=== PATIENT | female | born 1955 | race Caucasian/White ===

== ENCOUNTER 2020-01-07 15:37 | Emergency (ER) | payer MEDICARE, SELFPAY ==
[2020-01-07 15:42] VITALS: BP 111/62; PULSE 90; RESP 18; TEMP 36.7; O2SAT 99
[2020-01-07] MEDS: DEXTROSE 50% 25 GM/50 ML SYRINGE (15:48)
[2020-01-07 16:17] LABS: Basophils Absolute Auto 0.1 K/mm3 (0.0-0.1); Basophils Percent Auto 1.4 % (0.2-1.2); Eosinophils Percent Auto 0.7 % (0-4.4); Hematocrit 45.7 % (37.0-47.0); Hemoglobin 14.8 g/dL (12.0-15.0); Immature Granulocyte Absolute 0.03 K/mm3 (0.00-0.031); Immature Granulocyte Percent A 0.5 % (0-0.5); Lymphocytes Absolute Auto 0.69 K/mm3 (0.9-3.2); Lymphocytes Percent Auto 12.3 % (18.3-44.2); Mean Corpuscular HGB Conc 32.4 g/dl (32-36); Mean Corpuscular Hemoglobin 32.5 pg (26-34); Mean Corpuscular Volume 100.4 fl (80-100); Mean Platelet Volume 10.4 fl (7.4-10.4); Monocytes Absolute Auto 0.6 K/mm3 (0.1-0.6); Monocytes Percent Auto 10.9 % (2.6-8.5); Neutrophils Absolute Auto 4.2 K/mm3 (1.3-6.7); Neutrophils Percent Auto 74.2 % (45.5-73.1); Nucleated Red Blood Cells Perc 0.5 % (0.0-0.2); Platelet Count Result 196 k/mm3 (150-375); Red Blood Count 4.55 M/mm3 (4.2-5.4); Red Cell Distribution Width 17.9 % (11.5-14.5); White Blood Count 5.6 K/mm3 (4.5-10.0)
[2020-01-07 16:38] LABS: Anion Gap 20 mmol/L (8-16); Blood Urea Nitrogen 36 mg/dL (7-17); Calcium 9.4 mg/dL (8.4-10.2); Carbon Dioxide 21 mmol/L (22-30); Chloride 88 mmol/L (98-107); Estimated CRCL calculation 8 ml/min; Estimated Glomerular Filt Rate 7; Glucose 270 mg/dL (65-105); Potassium 4.3 mmol/L (3.4-5.0); Sodium 129 mmol/L (137-145)
--- NOTE | 2020-01-07 16:54 | ED.GENADULT ---
HPI - General Adult General Chief complaint: Unspecified Stated complaint: weakness Time Seen by Provider: 01/07/20 16:16 Source: patient Mode of arrival: EMS Limitations: no limitations History of Present Illness HPI narrative: 64 years old white female, brought to the emergency room because of blacking out with blood glucose of 40. Patient usually developed hypoglycemia after dialysis, she ran out of the hard candy which she usually she keep in her purse all the time when she go to dialysis. Patient also did not eat her breakfast before dialysis. Currently patient feeling okay denying any symptoms. And would like to go home. Related Data Allergies Allergy/AdvReac Type Severity Reaction Status Date / Time levofloxacin Allergy Intermediate rash Verified 04/01/18 15:18 Sulfa (Sulfonamide Allergy Unknown rash Verified 04/01/18 15:18 Antibiotics) oxycodone AdvReac Intermediate nausea and Verified 04/01/18 15:18 sensitivity to hearing erythromycin base AdvReac Mild nausea and Verified 04/01/18 15:18 vomiting; diarrhea OXYCODONE HCL AdvReac Intermediate nausea and Uncoded 04/01/18 15:18 sensitivity to hearing Review of Systems Review of Systems: Narrative: CONSTITUTIONAL: Denies fever, chills, or sweats. EYES: Denies visual changes, redness, or discharge. ENT: Denies rhinorrhea, congestion, sore throat, or otalgia. CARDIOVASCULAR: Denies chest pain, palpitations, or edema. RESPIRATORY: Denies cough or dyspnea. GASTROINTESTINAL: Denies abdominal pain, nausea, vomiting, or diarrhea. GENITOURINARY: Denies dysuria or hematuria. SKIN: Denies rash or itching. MUSCULOSKELETAL: Denies back pain, joint pain, or myalgia. NEUROLOGIC: Denies headache, numbness, or weakness. PSYCHIATRIC: Denies anxiety or depression. PMFSH Past Medical History Medical History (Updated 01/07/20 @ 16:59 by Lola Deleon MD) Chronic renal failure Hypoglycemia Social History Social History (Updated 01/07/20 @ 16:56 by Lola Deleon MD) Second hand tobacco smoke exposure: No Alcohol intake: former Substance use: never Exam Narrative: Exam Narrative: General appearance: Well-developed, well-nourished Skin: Normal color Head: Normocephalic, nontraumatic Eyes: Clear conjunctiva ENT: Oropharynx normal, ears normal, nose normal Neck: Supple, nontender Chest and respiratory: Airway patent, no respiratory distress, no accessory muscle use Heart: Regular rate/rhythm Abdomen: Soft, nontender, no organomegaly, quiet bowel sounds Vascular: Normal peripheral pulses, normal capillary refill. Musculoskeletal: Normal range of motion, nontender back Neurologic: Alert and oriented ?3, CEO & BOARD DIRECTOR is normal as tested, no gross motor deficit Course Course Emergency Course: Improving Vital Signs Vital signs: Vital Signs Temperature 36.7 C 01/07/20 15:42 Pulse Rate 90 01/07/20 15:42 Respiratory Rate 18 01/07/20 15:42 Blood Pressure 111/62 01/07/20 15:42 Pulse Oximetry 99 01/07/20 15:42 Temperature 36.7 C 01/07/20 15:42 Pulse Rate 90 01/07/20 15:42 Respiratory Rate 18 01/07/20 15:42 Blood Pressure 111/62 01/07/20 15:42 Pulse Oximetry 99 01/07/20 15:42 Medical Decision Making MDM Narrative Medical decision making narrative: Patient had hypoglycemia because he did not eat her breakfast, and did not have her hard candy before going to dialysis today. After a regular meal patient feeling okay and ready to go. Vital Signs Vital Signs: Vital Signs Temperature 36.7 C 01/07/20 15:42 Pulse Rate 90 01/07/20 15:42 Respiratory Rate 18 01/07/20 15:42 Blood Pressure 111/62 01/07/20 15:42 Pulse Oximetr
[2020-01-07 17:30] VITALS: BP 147/77; PULSE 88; RESP 17; O2SAT 96
[2020-01-07 19:04] LABS: Glucose Point of Care 194 (65-105)
== END 2020-01-07 17:30 | disposition home or self-care (01) ==
PROVIDERS: Emergency Provider Emergency Medicine; PCP Internal Medicine Nephrology
DX: E16.2 Hypoglycemia, unspecified (principal); N18.6 End stage renal disease; Z99.2 Dependence on renal dialysis
CPT/HCPCS: 36415; 80048; 85025; 96374; 99284

== ENCOUNTER 2020-01-13 20:34 | Inpatient (IN) | payer MEDICARE, SELFPAY ==
[2020-01-13] VITALS (11 sets, daily range): BP systolic 124–176; BP diastolic 33–131; PULSE 25–88; RESP 19–32; TEMP 34.9–35.8; O2SAT 76–87
--- NOTE | ~2020-01-13 | XR_ITS ---
EXAMINATION: XR chest 1V portable DATE: 01/13/2020 21:56 INDICATION: Altered mental status. Bradycardia. TECHNIQUE: A single frontal view of the chest was obtained. COMPARISON: Chest 2 views 01/05/2018, chest CT 08/22/2016 FINDINGS: There is no pneumonia, pleural effusion, or pneumothorax. Cardiomegaly is noted. There are surgical clips in the neck. IMPRESSION: 1. Cardiomegaly. Reviewed, dictated and finalized at location A. IMPRESSION: 1. Cardiomegaly.
--- NOTE | 2020-01-13 20:32 | ED.AMS ---
HPI - Altered Mental Status General Chief Complaint: Unspecified Stated Complaint: altered loc Source: EMS Mode of arrival: EMS Limitations: no limitations History of Present Illness HPI narrative: Patient is a 64-year-old female with a history of end-stage renal disease, dialysis dependent, Diabetes, hx of recent hypoglycemia for which she was seen in the ER, who presents for evaluation of altered mental status. Patient apparently was taking a nap this evening, when her cousin with whom she lives with checked on her and found her confused and not easy to wake up. EMS was called, she was found to be hypothermic, bradycardic, minimally responsive. Glucose reading was error message on glucometer for EMS. EMS attempted IV access, however IV not able to be used at time of arrival to ER. Apparently, EMS reports they tried to give the pt D10, but no glucagon was given. Patient was transported to our facility altered, but arousable, hypothermic and bradycardic. Additional history cannot be obtained. Related Data Home Medications Medication Instructions Recorded Confirmed Unable to Obtain Home Medications 01/14/20 01/14/20 Allergies Allergy/AdvReac Type Severity Reaction Status Date / Time levofloxacin Allergy Intermediate rash Verified 04/01/18 15:18 Sulfa (Sulfonamide Allergy Unknown rash Verified 04/01/18 15:18 Antibiotics) oxycodone AdvReac Intermediate nausea and Verified 04/01/18 15:18 sensitivity to hearing erythromycin base AdvReac Mild nausea and Verified 04/01/18 15:18 vomiting; diarrhea OXYCODONE HCL AdvReac Intermediate nausea and Uncoded 04/01/18 15:18 sensitivity to hearing Review of Systems Review of Systems: ROS unobtainable: Yes unobtainable due to mental status [facility] Past Medical History Medical History (Updated 01/14/20 @ 00:55 by Kiersten Aviles DO) Anemia of chronic disease Bilateral carotid artery stenosis moderate on imaging August 2015 Diabetes mellitus with neuropathy End-stage renal disease on hemodialysis 2007 dialysis Friday managed by Dr. Cummings Heart murmur History of biliary stent insertion Hyperparathyroidism Hypertension Hypoglycemia Irritable bowel syndrome Menieres disease Polycystic kidney disease Restless leg syndrome Surgical History Surgical History (Updated 01/14/20 @ 00:55 by Kiersten Aviles DO) AV (arteriovenous fistula) AV fistula graft that was clotted and subsequently converted to an AV fistula in the left arm History of bilateral cataract extraction History of parathyroidectomy Hx of cholecystectomy 2014 Hx of tonsillectomy Family History Family History Mother Polycystic kidney disease Father Leukemia Diabetes mellitus Acute myocardial infarction Social History Social History (Updated 01/14/20 @ 01:05 by Kiersten Aviles DO) Social History: She lived with her twin cousins. One of the twins 6 weeks ago at this facility. Code status: DNR /DNI per patient request. The patient specifically is asking for comfort measures only and is refusing any aggressive treatment. The ICU charge nurse, the ICU bedside nurse, and the dialysis nurse were all in the room and witnessed the discussion with the patient. Smoking status: Never smoker Second hand tobacco smoke exposure: No Alcohol intake: former Substance use: never Occupation/Education: retired Exam Narrative: Exam Narrative: GENERAL: Arousable, able to converse, chronically ill-appearing HEAD: Normocephalic, atraumatic. EYES: 2+ PERRLA ENT: Nares clear, no rhinorrhea or epistaxis. Mucous membranes dry NECK: Supple. CHEST: No respiratory distress, no crackles or wheezing HEART: Bradycardic rate ABDOMEN:Non distended, non tender, wounds to pannus, bilateral inguinal folds EXTREMITIES: Patient does have some spontaneous range of motion, periph
--- NOTE | 2020-01-13 20:49 | ECG_ITS ---
Measurements Intervals [place] Rate: 90 P: 207 [place]: 292 QRS: 110 QRSD: 130 T: -13 QT: 410 QTc: 503 Interpretive Statements SINUS OR ECTOPIC ATRIAL RHYTHM WITH FIRST DEGREE AV BLOCK RIGHT AXIS DEVIATION RIGHT BUNDLE BRANCH BLOCK LOW VOLTAGE- PRECORDIAL LEADS ANTEROSEPTAL INFARCT, AGE INDETERMINATE BORDERLINE ST-T WAVE ABNORMALITY- INFERIOR LEADS BASELINE ARTIFACT- I, III, AVR, AVL, AVF, V1, V3 ABNORMAL ECG Electronically Signed On 01-14-2020 7:01:49 CDT by Onesimo Bansal D.O.
[2020-01-13 21:07] LABS: Alveolar/Arterial O2 Gradient 612.6 mmHg; Carboxyhemoglobin 0.9 % THb (0-2.0); HCO3 ABG 13.8 mEq/l (22.0-26.0); Methemoglobin ABG 0.5 %THb (0-1.5); Oxygen Content ABG 17.6 %vol (16.0-22.0); Oxyhemoglobin 79.9 % THb (90.0-100.0); PCO2 ABG 38.5 mmHg (35.0-45.0); PO2 ABG 61.9 mmHg (80.0-100.0); PO2 FiO2 Ratio Arterial Blood 0.62 %; Reduced Hemoglobin 18.7 %THb (0-5.0); Total Hemoglobin 15.7 g/dL (12.0-18.0)
[2020-01-13 21:08] LABS: pH ABG 7.171 (7.350-7.450)
[2020-01-13 21:09] LABS: Oxygen Saturation ABG 85.5 % (95.0-100.0); Site Drawn LEFT FEMORAL
[2020-01-13] MEDS: SODIUM BICARBONATE 8.4% 50 MEQ/50 ML VIAL IV PUSH (21:09)
[2020-01-13] MEDS: GLUCAGON FOR INJ 1 MG VIAL IV PUSH (21:09)
[2020-01-13] MEDS: CALCIUM GLUCONATE 1,000 MG/10 ML VIAL 2000 MG IV PUSH (21:10)
[2020-01-13] MEDS: SODIUM CHLORIDE 0.9% IV 1,000 ML 999 ML IV CONT (21:11)
[2020-01-13 21:12] LABS: Device NASAL CANNULA; Fractional Inspired Oxygen 100 %
[2020-01-13 21:28] LABS: Basophils Percent Auto 0.3 % (0.2-1.2); Eosinophils Percent Auto 0.1 % (0-4.4); Hematocrit 42.9 % (37.0-47.0); Immature Granulocyte Percent A 1.3 % (0-0.5); Immature Platelet Fraction Pct 3.7 % (0.9-11.2); Lymphocytes Absolute Auto 0.42 K/mm3 (0.9-3.2); Lymphocytes Percent Auto 5.4 % (18.3-44.2); Mean Corpuscular HGB Conc 32.6 g/dl (32-36); Mean Corpuscular Hemoglobin 33.3 pg (26-34); Mean Corpuscular Volume 102.1 fl (80-100); Mean Platelet Volume 10.1 fl (7.4-10.4); Monocytes Absolute Auto 0.6 K/mm3 (0.1-0.6); Monocytes Percent Auto 7.9 % (2.6-8.5); Neutrophils Absolute Auto 6.6 K/mm3 (1.3-6.7); Nucleated Red Blood Cells Absolute Auto 0.2 K/mm3 (0.0-0.012); Nucleated Red Blood Cells Perc 2.3 % (0.0-0.2); Platelet Count Result 153 k/mm3 (150-375); Red Cell Distribution Width 18.8 % (11.5-14.5); White Blood Count 7.7 K/mm3 (4.5-10.0)
[2020-01-13 21:34] LABS: Alveolar/Arterial O2 Gradient 105.7 mmHg; Base Excess ABG -13.6 mEq/l (+/-2.0); Carboxyhemoglobin 0.6 % THb (0-2.0); Fractional Inspired Oxygen 36 %; Methemoglobin ABG 0.3 %THb (0-1.5); Oxygen Content ABG 20.2 %vol (16.0-22.0); Oxygen Saturation ABG 98.4 % (95.0-100.0); Oxyhemoglobin 96.8 % THb (90.0-100.0); PO2 ABG 127.8 mmHg (80.0-100.0); PO2 FiO2 Ratio Arterial Blood 3.55 %; Reduced Hemoglobin 2.3 %THb (0-5.0); Total Hemoglobin 14.7 g/dL (12.0-18.0); pH ABG 7.318 (7.350-7.450)
[2020-01-13 21:35] LABS: Site Drawn RIGHT RADIAL
[2020-01-13 21:36] LABS: Device NASAL CANNULA; Modified Allen's Test Pass
[2020-01-13 21:39] LABS: Ammonia 109 umol/L (9-30); Ethanol < 10 mg/dL (<10)
[2020-01-13 21:41] LABS: INR 1.5; Lactic Acid Reflex 8.8 mmol/L (0.7-2.1); Prothrombin Time 17.5 Seconds (11.1-14.7)
[2020-01-13 21:55] LABS: Alanine Aminotransferase 61 U/L (4-35); Albumin Level 3.3 g/dL (3.5-5.1); Alkaline Phosphatase 123 U/L (38-126); Anion Gap 26 mmol/L (8-16); Aspartate Amino Transferase 213 U/L (14-36); Bilirubin,Total 1.8 mg/dL (0.2-1.3); Blood Urea Nitrogen 61 mg/dL (7-17); Calcium 10.2 mg/dL (8.4-10.2); Carbon Dioxide 15 mmol/L (22-30); Chloride 91 mmol/L (98-107); Creatine Kinase 128 U/L (30-135); Estimated Glomerular Filt Rate 5; Glucose 67 mg/dL (65-105); Potassium 6.6 mmol/L (3.4-5.0); Sodium 132 mmol/L (137-145)
[2020-01-13 21:58] LABS: Glucose Point of Care 210 (65-105)
[2020-01-13 21:58] LABS: Glucose Point of Care 23 (65-105)
[2020-01-13 21:58] LABS: Glucose Point of Care 276 (65-105)
[2020-01-13 22:35] LABS: NT Pro B Type Natriuretic Pept > 35000 PG/ML (5-100)
--- NOTE | 2020-01-13 22:35 | PM.PNNEP ---
Progress Note: A&P Assessment and Plan (1) Complete heart block: Code(s): I44.2 - Atrioventricular block, complete Status: Acute (2) Hyperkalemia: Code(s): E87.5 - Hyperkalemia Status: Acute (3) Lactic acidosis: Code(s): E87.2 - Acidosis Status: Acute (4) ESRD (end stage renal disease): Code(s): N18.6 - End stage renal disease Status: Acute (5) Polycystic kidney disease: Code(s): Q61.3 - Polycystic kidney, unspecified Status: Acute (6) Diabetes mellitus with neuropathy: Code(s): E11.40 - Type 2 diabetes mellitus with diabetic neuropathy, unspecified Status: Acute (7) Chronic narcotic dependence: Code(s): F11.20 - Opioid dependence, uncomplicated Status: Acute Assessment and Plan: BMP - PER ER DOC ? OF HEMOLYSIS- I ORDERED A RECHECK. DR CHERRY RELATED PT HAD DIALYSIS TODAY BUT HER USU DAYS ARE FRI=FRI-FRIDAY. SHE HAS OFTEN HAD TO COME ON FRIDAY OR FRIDAY FOR FLUID REMOVAL- DUF DRY ULTRAFILTRATION WHICH WOULD NOT HAVE SIGNIFICANTLY LOWERED HER POTASSIUM NO DIALYSIS BATH IS RUN AGAINST THE DIALYSIS SYSTEM. PT ALSO HAS A PRISON HISTORY OF POOR CONTROL OF HER PHOSPHORUS, POTASSIUM, DM NEUROPATHY COMPLICATED BY MEDICATION REMOVAL WITH DIALYSIS. IN THE AM I WILL CALL HER [facility] AND FIND OUT IF SHE HAD FLUID REMOVAL ONLY TX OR FULL DIALYSIS. SHE IS BEING TAKEN TO BLUEPRINTING AND PHOTOCOPY SUPERVISOR. I CALLED FOR THE DIALYSIS NURSE VETERINARY SURGEON- JUANITO RESPONDED AND NOTIFIED ME HE IS DIALYZING A PATIENT AT [facility] AND WON'T BE ABLE TO GET TO [place] FOR 2-3 HOURS. THIS SHOULD BE OKAY PT IS GOING TO BLUEPRINTING AND PHOTOCOPY SUPERVISOR. SHE LIKELY ALSO NEEDS SOME SODIUM BICARBONATE AND STARTING A GTT WITH D5W SHOULD ALSO HEP WITH THE HYPOGLYCEMIA ISSUE. PT ALSO NEEDS TO BE GIVEN TREATMENT FOR HYPERKALEMIA TO TRY TO STABILIZE HER- THIS WILL BE DONE MOSTLY WITH SODIUM BICARBONATE GTT. (8) Hypoglycemia: Code(s): E16.2 - Hypoglycemia, unspecified Status: Acute Subjective Date/time seen: 01/13/20 22:35 Objective Data Vital Signs Vital Signs: Vital Signs - 24 hr 01/13/20 20:34 01/13/20 20:40 Pulse Rate 28 L 25 L Respiratory Rate 19 Blood Pressure 124/65 Pulse Oximetry 81 L Meds/Results Medications: Active Medications Generic Name Dose Route Start Last Admin Trade Name Freq PRN Reason Stop Dose Admin Fentanyl Citrate 2,500 mcg in 250 mls @ 2.5 mls/hr 01/13/20 21:45 Fentanyl 2,500 Mcg/Ns 250 Ml IV CONT .Q72H JUDY 25 MCG/HR Albumin Human 50 mls @ 999 mls/hr 01/13/20 22:23 Albutein IVPB 01/14/20 22:24 Q10M PRN HYPOTENSION Sodium Chloride 1,000 mls @ 999 mls/hr 01/13/20 22:23 Normal Saline Iv IV CONT 01/13/20 23:23 .Q1H1M ONE Vancomycin HCl 1,250 mg in 250 mls @ 200 mls/hr 01/13/20 22:35 Vancomycin 1,250 Mg/D5w 250 Ml IVPB 01/13/20 23:49 ONCE ONE Vancomycin HCl 1 each 01/13/20 21:45 Vancomycin Pharmacist To Dose IVPB PER PROTOCOL [facility] Radiology Results: ITS Impressions Chest X-Ray 01/13/20 21:56 IMPRESSION: 1. Cardiomegaly. Labs Labs: Laboratory Results - last 24 hr 01/13/20 01/13/20 01/13/20 21:04 21:07 21:16 WBC RBC Hgb Hct MCV MCH MCHC RDW Plt Count MPV Immature Gran % (Auto) Neut % (Auto) Lymph % (Auto) [place] % (Auto) Eos % (Auto) Baso % (Auto) Lymph # (Auto) [place] # (Auto) Eos # (Auto) Baso # (Auto) Abs Immat Gran (auto) Absolute Neuts (auto) Absolute Nucleated RBC Nucleated RBC % % Immature Plt Fraction PT INR APTT Puncture Site Left femoral ABG pH 7.171 L* ABG pCO2 38.5 ABG pO2 61.9 L ABG PO2/FiO2 Ratio 0.62 ABG HCO3 13.8 L ABG O2 Saturation 85.5 L* ABG O2 Content 17.6 ABG Base Excess -14.0 A-a Gradient 612.6 Oxyhemoglobin 79.9 L Carboxyhemoglobin 0.9 Methemoglobin 0.5 Redu
--- NOTE | 2020-01-13 22:37 | PC.NURSE ---
2035: D50, 25G, given IVP. 0.5 mg Atropine was given IVP. Meds per verbal order of Dr. Hernandez. 2036: Fentanyl patch removed from patient's chest and 2 mg narcan was given IVP per verbal order of Dr. Su 2041: External pacing initiated per verbal order of Dr. Su. Patient was paced at a rate of 60 BPM with 125 mA current. Capture noted on the monitor and palpable pulses noted with each paced beat. 2046: D50,25G,given IVP per verbal order of Dr. Hernandez 2111: D50,25G,given IVP per verbal order of Dr. Hernandez 2114: Fentanyl,25MCG,given IVP per verbal order of Dr. Hernandez 0: D10W,200ML,infused IV,continued from EMS,total of 250ml infused per verbal order of Dr. Hernandez. 0: Fentanyl,25MCG,given IVP per verbal order of Dr. Hernandez 0: Fentanyl,25MCG,given IVP per verbal order of Dr. Hernandez 0: Fentanyl,25MCG,given IVP per verbal order of Dr. Hernandez 2230: Patient in care of Cathlab team.
--- NOTE | 2020-01-13 22:56 | PM.PROC ---
Procedure Note - Detailed Date of procedure: 01/13/20 Pre-op diagnosis: Unresponsive, low blood sugar complete heart block w/ HR in 20's, shock Post-op diagnosis: same Procedure performed: conscious sedation Placement of a temporary transvenous pacemaker Description of procedure: After oral consent, the patient was taken to the quality control lab tech emergently. She received some conscious sedation. The right groin was prepped and draped usual fashion. Was anesthetized with 1% lidocaine. The right femoral vein was punctured and cannulated with the Venousl sheath. A temporary pacer wire was advanced up through the right heart and to the right ventricle. A good position was found where patient paced with a threshold of less than 1. At that point the patient had underlying rhythm which is atrial fibrillation with a rate in the 80s so the temporary pacer rate was set for 50. The sterile sleeve was applied. The sheath was sutured to the skin with silk suture. A sterile dressing was applied. Patient taken to the ICD improved condition. Report given to Dr. Waddell. Anesthesia: local Surgeon: Kallie Mccormick MD Estimated blood loss (mL): 5 Drains: No Packing: No Pathology: none sent Complications: No immediate complications Condition: critical Disposition: ICU Findings: Crusty intertriginous areas, despite prep.
--- NOTE | 2020-01-13 23:00 | WPDCN ---
Assessment and Plan Assessment and plan (1) Complete heart block: Code(s): I44.2 - Atrioventricular block, complete Status: Acute Assessment and Plan: Patient arrived in complete heart block requiring a temporary external pacemaker. Placed temporary transvenous pacemaker through the right femoral approach. After the procedure the patient was found to have a heart rhythm, atrial fibrillation, heart rate in the 80s. Temporary pacemaker turned down to 50 beats per minute. Will reassess in the morning, hopefully discontinue the temporary pacer and femoral line tomorrow (2) Hypoglycemia: Code(s): E16.2 - Hypoglycemia, unspecified Status: Acute Assessment and Plan: patient had profound hypoglycemia, could not be registered, received 4 rounds of IV dextrose, improved (3) ESRD (end stage renal disease): Code(s): N18.6 - End stage renal disease Status: Acute Assessment and Plan: end-stage renal disease on hemodialysis. Dr. Cummings has given orders for Emergent dialysis tonight. (4) Lactic acidosis: Code(s): E87.2 - Acidosis Status: Acute Assessment and Plan: lactic acidosis noted (5) Hyperkalemia: Code(s): E87.5 - Hyperkalemia Status: Acute Assessment and Plan: Treated (temporarily) Getting dialysis later. (6) Hypothermia: Code(s): T68.XXXA - Hypothermia, initial encounter Status: Acute Assessment and Plan: Treated (7) Hypotension: Code(s): I95.9 - Hypotension, unspecified Status: Acute Assessment and Plan: REsolved HPI Data of Consult Date/Time: 01/13/20 23:00 Requesting Physician: Kiersten Aviles DO Primary Care Provider: Radha Pierre, Consult Narrative Narrative: Date of service: 01/13/2020 Gayle Longoria is a 64 year old female is a dialysis patient, whom I was asked to consult on emergently by Dr. Hernandez in the emergency room for placement of a temporary pacemaker. The patient arrived with heart rate of a 20 still 30s, hypotensive, hypothermic, profoundly hypoglycemic, hyperkalemic, with a lactic acidosis. The patient is a dialysis patient and we have very little information on our EMR about her. She was seen a couple of days ago in this emergency room with an episode of hypoglycemia. Apparently she had dialysis today and went to take a nap. Her friend/ roommate could not arouse her this evening and she had minimal respirations with altered mental status. EMS was called and attempted to get a blood sugar, but it it was so low that itcould not be measured. She was in complete heart block, with a heart rate in the 20s to 30's. She was given 4 amps of D50 and D10. In the emergency room there was an attempt to place a line through the left femoral which was unsuccessful so she had bilateral IJ lines placed. She initially Had her fentanyl patches removed andwas given Narcan with no improvement. She was in complete heart block an external pacing pads were applied. Her potassium came back at 6.6 and she was given insulin, calcium and the above-mentioned dextrose. She remained in complete heart block and I was asked to place a temporary pacer wire. She was hypothermic and a Bear Hugger was applied. After the 4 amps of glucose her blood sugar was up to 200. she became more alert but was in a lot of discomfort from the temporary pacing and other issues and was given some more IV fentanyl. She had a discussion with Dr. Hernandez about her code status; she would allow see p.r.n. temporary pacemaker but did not want intubation. Review of Systems Review of Systems: Narrative: Revzahra
--- NOTE | 2020-01-13 23:07 | PC.NURSE ---
Patient states ok to speak with her cousin Dasha Emerson. [phone]
[2020-01-13] MEDS: ALBUTEROL SULFATE NEB 2.5 MG/0.5 ML INH INHALATION (23:15)
--- NOTE | 2020-01-13 23:15 | ADMGEN ---
This patient, Gayle Longoria, was admitted to Intensive Care Unit-12. Patient oriented to hospital policies and general routines including ID bracelet, bed and alarms, visiting hours, pain management, procedures, bathroom and other care routines, personal items, smoking policy, room service/diet, and visiting hours. Valuables list has been completed. Information on how to activate the Rapid Response Team has been discussed. Patient/Family are encouraged to report perceived risks to care and to ask questions if they do not understand what they are told or what they should do.
[2020-01-13 23:32] LABS: Hepatitis B Core IgM Result Negative (Negative)
--- NOTE | 2020-01-13 23:38 | PC.NURSE ---
Arrived to icu 12 for stat HD tx per Dr. Cummings. Pt refused HD upon arrival to her room. Hospitalist in room to clarify patient's intentions - pt restated refusal of HD and other interventions. Dr. Cummings notified. ICU staff notified to call call RN if pt changes her mind regarding HD. Cancellation of treatment before set-up.
--- NOTE | 2020-01-13 23:41 | PM.IMHP ---
H&P: HPI History of Present Illness Date/Time: 01/13/20 23:20 Chief complaint: Unresponsive, low blood sugar Narrative: Gayle Longoria is a 64 year old female with a past medical history of end-stage renal disease due to polycystic kidneys on hemodialysis since 2007 and chronic pain syndrome on home fentanyl patches who presented to the ER due to altered mental status. When EMS arrived at the patient's home the patient was unresponsive and had a glucose those reading low on glucometer. Her glucose was 28 in the ER after several amps of D50. The patient did not receive any dextrose or glucagon in the field per ER physician report. The patient lives with her cousin Ce. Her cousin reported that the patient had laid down after dialysis and she called EMS when she was on arousable sometime later. When he EMS arrived to the patient's house it was apparent that the patient was going in and out of a third-degree heart block with heart rates down in the 20s and 30s. When the patient arrived to the ER she was lethargic and moaning. Her temperature was as low as 93?. The patient had evidently went to dialysis a couple of days ago and only was able to tolerate up partial treatment. She then went to dialysis earlier today and could only tolerate a few minutes of treatment before she had them stop . In the ER the patient received a dose of atropine which briefly improved her heart rate. She also received 2 amps of calcium gluconate bicarb and dextrose. She could not received insulin due to her hypoglycemia. In the ER the patient was placed on transcutaneous pacers. Her heart rate improved . In the ER the patient had agreed to a transvenous pacer. The patient had told the ER staff that she was uncertain if she wanted to be intubated but that she was okay with cardiac resuscitation. However after the patient was admitted to the ICU as I went to evaluate the patient she was having significant difficulty breathing and was moaning out in pain. The patient was oriented to person place time and situation. She was insistent that she did not want to receive dialysis. She verbalized understanding that she would without dialysis treatment. She stated that she did not want her heart restarted if it stops and that she would not want to be intubated. She requested that she be made comfortable. The patient was adamant that she did not want her family to come up and see her in her current condition. Evidently the patient's cousin that she lives with lost her twin sister 6 weeks ago. She did not want her cousin to have to sit at the hospital with her and her current condition. The patient's external medication history was reviewed. The patient is only on fentanyl and [place] for external med review. Review of Systems Review of Systems: Narrative: Review of systems was attempted but was limited due to the patient's critical condition. [facility] Past Medical History Medical History (Updated 01/14/20 @ 06:54 by Kiersten Aviles DO) Anemia of chronic disease Bilateral carotid artery stenosis moderate on imaging August 2015 Diabetes mellitus with neuropathy End-stage renal disease on hemodialysis 2007 dialysis Friday managed by Dr. Cummings Heart murmur History of biliary stent insertion Hyperparathyroidism Hypertension Hypoglycemia Irritable bowel syndrome Menieres disease Polycystic kidney disease Restless leg syndrome Surgical History Surgical History (Updated 01/14/20 @ 00:55 by Kiersten Aviles DO) AV (arteriovenous fistula) AV fistula graft that was clotted and subsequently converted to an AV fistula in the left arm History of bilateral cataract extraction History of parathyroidectomy Hx of cholecystectomy 2013 Hx of tonsillectomy Family History Family History Mother Polycystic kidney disease Father Leukemia Diabetes mellitus Acute m
[2020-01-13] MEDS: MORPHINE SULFATE (*CRX) 4 MG/ML INJ IV PUSH (23:43)
[2020-01-13] MEDS: LORazepam INJ (*CRX) 2 MG/ML VIAL 1 MG IV PUSH (23:43)
[2020-01-13 23:44] LABS: Glucose Point of Care 119 (65-105)
[2020-01-14] VITALS: PULSE 93
[2020-01-14 00:24] LABS: Reflex Lactic Acid Yes or No Add Lactic
[2020-01-14] MEDS: MORPHINE SULFATE INJ (*CRX) 50 MG in SODIUM CHLORIDE 0.9% IV 95 ML IV CONT (00:42)
[2020-01-14] MEDS: LORazepam INJ (*CRX) 2 MG/ML VIAL 1 MG IV PUSH (01:45)
[2020-01-14 02:00] VITALS: BP 92/80; PULSE 84; PULSE 85; RESP 19; TEMP 37; O2SAT 73
[2020-01-14 04:00] VITALS: PULSE 68
[2020-01-14 04:30] VITALS: BP 152/85; PULSE 70; RESP 24; TEMP 37.4; O2SAT 66
[2020-01-14 05:22] VITALS: BMI 31.4
[2020-01-14 06:00] VITALS: PULSE 43
--- NOTE | 2020-01-14 09:09 | PM.DDS ---
Discharge Sum: Prov Provider Primary care physician: Radha Pierre, Admitting provider: Kiersten Aviles DO Consults: 01/13/20 22:26 Consult to Physician Routine Comment: Consulting Provider: Luisana Cummings Reason for consultation: Hyperkalemia, dialysis dependent Has provider been notified: Yes Consult to Physician Routine Comment: Consulting Provider: Isaiah Waddell Reason for consultation: ICU admission Has provider been notified: Yes 01/13/20 22:27 Consult to Physician Routine Comment: Consulting Provider: Kallie Mccormick Reason for consultation: complete heart block Has provider been notified: Yes Discharge Sum: Diag Contributing Factors (1) End of life care: (2) Hypothermia: (3) Hypoglycemia: (4) Chronic narcotic dependence: (5) ESRD (end stage renal disease): (6) Lactic acidosis: (7) Hyperkalemia: (8) Complete heart block: Discharge Sum: Summary Date and Time Date of admission: 01/13/20 22:22 Date of : 01/14/20 Time of : 07:36 Summary Details: Gayle Longoria is a 64 year old female with a past medical history of end-stage renal disease due to polycystic kidneys on hemodialysis since 2007 and chronic pain syndrome on home fentanyl patches who presented to the ER due to altered mental status. When EMS arrived at the patient's home the patient was unresponsive and had a glucose those reading low on glucometer. Her glucose was 28 in the ER after several amps of D50. The patient did not receive any dextrose or glucagon in the field per ER physician report. The patient lives with her cousin Ce. Her cousin reported that the patient had laid down after dialysis and she called EMS when she was on arousable sometime later. When he EMS arrived to the patient's house it was apparent that the patient was going in and out of a third-degree heart block with heart rates down in the 20s and 30s. When the patient arrived to the ER she was lethargic and moaning. Her temperature was as low as 93?. The patient had evidently went to dialysis a couple of days ago and only was able to tolerate up partial treatment. She then went to dialysis earlier today and could only tolerate a few minutes of treatment before she had them stop . In the ER the patient received a dose of atropine which briefly improved her heart rate. She also received 2 amps of calcium gluconate bicarb and dextrose. She could not received insulin due to her hypoglycemia. In the ER the patient was placed on transcutaneous pacers. Her heart rate improved . In the ER the patient had agreed to a transvenous pacer. The patient had told the ER staff that she was uncertain if she wanted to be intubated but that she was okay with cardiac resuscitation. However after the patient was admitted to the ICU as I went to evaluate the patient she was having significant difficulty breathing and was moaning out in pain. The patient was oriented to person place time and situation. She was insistent that she did not want to receive dialysis. She verbalized understanding that she would without dialysis treatment. She stated that she did not want her heart restarted if it stops and that she would not want to be intubated. She requested that she be made comfortable. The patient was adamant that she did not want her family to come up and see her in her current condition. Evidently the patient's cousin that she lives with lost her twin sister 6 weeks ago. She did not want her cousin to have to sit at the hospital with her and her current condition. The patient was started on morphine drip which was increased to 3 mg an hour as well as p.r.n. Ativan for discomfort. The patient was relatively comfortable on these medications. As the night progressed in the morning the patient had increasing episodes of bradycardia. Given the patient's wish for comfort base care the patient's pacemaker had been turned o
== END 2020-01-14 07:35 | disposition expired | DRG 260 ==
LOC: ANHED 21:02 → ANHICU 22:30
PROVIDERS: Internal Medicine Cardiovascular Disease; Internal Medicine Nephrology; Admitting Provider Internal Medicine; Emergency Provider Emergency Medicine; PCP Internal Medicine Nephrology; Visit Provider Internal Medicine
PROC: 02HK3JZ Insertion of Pacemaker Lead into Right Ventricle, Percutaneous Approach (ICD-10-PCS; CPT 33210; principal; 2020-01-13 09:45)
DX: I44.2 Atrioventricular block, complete (principal); N18.6 End stage renal disease; E87.2 Acidosis; Q61.3 Polycystic kidney, unspecified; F11.20 Opioid dependence, uncomplicated; I46.2 Cardiac arrest due to underlying cardiac condition; E11.22 Type 2 diabetes mellitus with diabetic chronic kidney disease; E11.42 Type 2 diabetes mellitus with diabetic polyneuropathy; E87.5 Hyperkalemia; G89.4 Chronic pain syndrome; E11.649 Type 2 diabetes mellitus with hypoglycemia without coma; D63.1 Anemia in chronic kidney disease; I65.23 Occlusion and stenosis of bilateral carotid arteries; E21.3 Hyperparathyroidism, unspecified; K58.9 Irritable bowel syndrome, unspecified; G25.81 Restless legs syndrome; I95.9 Hypotension, unspecified; I48.91 Unspecified atrial fibrillation; R68.0 Hypothermia, not associated with low environmental temperature; Z98.42 Cataract extraction status, left eye; Z99.2 Dependence on renal dialysis; Z98.41 Cataract extraction status, right eye; Z90.49 Acquired absence of other specified parts of digestive tract; Z66 Do not resuscitate
CPT/HCPCS: 33210; 36415; 36600; 51702; 71045; 80053; 80307; 82140; 82375; 82550; 82805; 82948; 83050; 83605; 83880; 84443; 84484; 85025; 85055; 85610; 85730; 86705; 87040; 87077; 87186; 93005; 94640; 96361; 96374; 96375; 99291; A9270; C1894; J0461; J0610; J1610; J1644; J2060; J2270; J3010; J7030; J7040; L1830